=== PATIENT | male | born 1935 | race African-American/Black ===

== ENCOUNTER → 2019-08-02 | Emergency (ER) | payer MEDICARE, OTHER ==
[~2019-08-02] VITALS: Ht 188 cm; Wt 72.6 kg
[~2019-08-02] MED LIST: EPINEPHrine HCL 1 MG/10 ML SYRG IV ONE
[2019-08-02 00:42] VITALS: BP 0/0
== END | disposition expired ==
LOC: EDUNIT# 00:18 → EDBD 00:42 → ER 00:43
DX: I46.9 Cardiac arrest, cause unspecified (principal); I50.9 Heart failure, unspecified; E11.9 Type 2 diabetes mellitus without complications; Z95.0 Presence of cardiac pacemaker
CPT/HCPCS: 92950; 99285; J0171